=== PATIENT | female | born 2000 | race Two or more races ===

== ENCOUNTER 2021-07-24 14:37 | Emergency (ER) | payer OTHER, SELFPAY ==
[2021-07-24 14:52] VITALS: BP 120/72; PULSE 77; RESP 14; TEMP 36.7; O2SAT 100
[2021-07-24 15:35] LABS: Basophils Percent Auto 0.8 % (0.2-1.2); Eosinophils Absolute Auto 0.1 K/mm3 (0-0.3); Eosinophils Percent Auto 1.9 % (0-4.4); Hematocrit 34.7 % (37.0-47.0); Hemoglobin 11.2 g/dL (12.0-15.0); Immature Granulocyte Absolute 0.01 K/mm3 (0.00-0.031); Immature Granulocyte Percent A 0.2 % (0-0.5); Lymphocytes Absolute Auto 1.55 K/mm3 (0.9-3.2); Lymphocytes Percent Auto 32.5 % (18.3-44.2); Mean Corpuscular HGB Conc 32.3 g/dl (32-36); Mean Corpuscular Hemoglobin 25.9 pg (26-34); Mean Corpuscular Volume 80.1 fl (80-100); Mean Platelet Volume 10.2 fl (7.4-10.4); Monocytes Absolute Auto 0.4 K/mm3 (0.1-0.6); Monocytes Percent Auto 7.3 % (2.6-8.5); Neutrophils Absolute Auto 2.7 K/mm3 (1.3-6.7); Neutrophils Percent Auto 57.3 % (45.5-73.1); Platelet Count Result 263 k/mm3 (150-375); Red Blood Count 4.33 M/mm3 (4.2-5.4); Red Cell Distribution Width 16.1 % (11.5-14.5); White Blood Count 4.8 K/mm3 (4.5-10.0)
[2021-07-24 16:03] LABS: Beta HCG Quantitative < 2.39 mIU/ML
[2021-07-24 17:12] VITALS: BP 103/56; PULSE 67; RESP 18; TEMP 36.5; O2SAT 100
--- NOTE | 2021-07-24 18:10 | ED.CHESTPAIN ---
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 Patient reports she had unprotected sex on 07-22-21 and that is why she is the Plan B pill. She denies being on any control. She reports she does not have any accompanying symptoms such as nausea, vomiting, abdominal pain, fevers, chills, urinary symptoms. She reports she has had heavy menstrual bleeding in the past and had ultrasound performed and was told that she was without abnormality. Patient reports she became concerned because she had her menstrual period 1 week prior to taking the Plan B pill so she does not believe the bleeding is menstrual cycle related. Related Data Allergies Allergy/AdvReac Type Severity Reaction Status Date / Time No Known Allergies Allergy Verified 07/24/21 17:57 Review of Systems Review of Systems: CONSTITUTIONAL: Denies fever, chills, or sweats. EYES: Denies visual changes, redness, or discharge. ENT: Denies rhinorrhea, congestion, sore throat, or otalgia. CARDIOVASCULAR: Denies chest pain, palpitations, or edema. RESPIRATORY: Denies cough or dyspnea. GASTROINTESTINAL: Denies abdominal pain, nausea, vomiting, or diarrhea. GENITOURINARY: Reports vaginal bleeding denies dysuria or hematuria. SKIN: Denies rash or itching. MUSCULOSKELETAL: Denies back pain, joint pain, or myalgia. NEUROLOGIC: Denies headache, numbness, dizziness, or weakness. PSYCHIATRIC: Denies anxiety or depression. Exam Narrative: GENERAL: Well-appearing, well-nourished, and in no acute distress. HEAD: Normocephalic, atraumatic. EYES: PERRLA and EOMI. ENT: Nares clear, no rhinorrhea or epistaxis. Mucous membranes moist. Oropharynx without tonsillar hypertrophy exudate or other lesions. Bilateral TMs pearly [place] nonbulging NECK: Supple. No adenopathy or masses. No carotid bruits or JVD CHEST: Clear to auscultation. No respiratory distress. No wheezes rales or rhonchi HEART: Regular rate and rhythm. No murmur heard. Normal peripheral pulses. ABDOMEN: Soft, nontender, nondistended, normal active bowel sounds. PELVIC: Mild bleeding from vagina. coming from cervix no abnormal clumps of tissue or blood clots appreciated. EXTREMITIES: Normal range of motion. No edema. SKIN: Warm, dry, no rash. NEURO: No focal deficits. Alert and oriented x3. PSYCH: Normal mood and affect. Course Vital Signs Vital signs: Vital Signs Temperature 98.1 F 07/24/21 14:52 Pulse Rate 77 07/24/21 14:52 Respiratory Rate 14 07/24/21 14:52 Blood Pressure 120/72 07/24/21 14:52 Pulse Oximetry 100 07/24/21 14:52 Temperature 97.7 F 07/24/21 17:12 Pulse Rate 67 07/24/21 17:12 Respiratory Rate 18 07/24/21 17:12 Blood Pressure 103/56 L 07/24/21 17:12 Pulse Oximetry 100 07/24/21 17:12 MDM - Chest Pain MDM Narrative Medical decision making narrative: Discussed with the patient that her bleeding is not heavy at this time. Like a light/med menstrual flow without clots. Discussed with patient the need to follow-up with [facility] [facility] for reevaluation and to answer any additional concerns or questions. Patient can also discuss control options if desired. Patient instructed to return to emergency department if she develops any emergent bleeding or any other emergent symptoms. Patient advised that hCG was less than 2.4. Lab Data Result diagrams: 07/24/21 15:02 Labs: Lab Results 07/24/21 07/24/21 07/24/21 Range/Units 15:02 15:02 15:02 WBC 4.8 (4.5-10.0) K/mm3 RBC 4.33 (4.2-5.4) M/mm3 Hgb 11.2 L (12.0-15.0) g/dL Hct 34.7 L (37.0-47.0) % MCV 80.1 (80-100) fl MCH 25.9 L (26-34) pg MCHC 32.3 (32-36) g/dl RDW 16.1 H (1
--- NOTE | 2021-07-24 19:25 | PC.NURSE ---
Report received and care of pt assumed at this time.
[2021-07-24 20:03] VITALS: BP 103/68; PULSE 68; RESP 16; O2SAT 100
== END 2021-07-24 20:05 | disposition home or self-care (01) ==
PROVIDERS: Emergency Medicine; Emergency Provider Emergency Medicine
DX: N93.9 Abnormal uterine and vaginal bleeding, unspecified (principal)
CPT/HCPCS: 36415; 84702; 85025; 85461; 99284